=== PATIENT | female | born 1970 | race Caucasian/White ===

== ENCOUNTER 2018-02-17 23:54 | Emergency (ER) | payer SELFPAY ==
[2018-02-18 00:03] VITALS: BP 128/59; BMI 26.4
[2018-02-18 00:57] LABS: BILIRUBIN,URINE NEGATIVE (NEGATIVE); BLOOD/HEMOGLOBIN,URINE 5+ (NEGATIVE); GLUCOSE, URINE NEGATIVE (NEGATIVE); KETONES,URINE 1+ (NEGATIVE); LEUKOCYTE ESTERASE ,URINE 3+ (NEGATIVE); NITRITES,URINE POSITIVE (NEGATIVE); PH,URINE 6.5 (5.0 - 8.0); PROTEIN,URINE 4+ (NEGATIVE); UROBILINOGEN,URINE NORMAL (NORMAL)
[2018-02-18 01:05] LABS: APPEARANCE,URINE CLOUDY (CLEAR); COLOR,URINE RED (YELLOW)
[2018-02-18 01:06] LABS: BACTERIA,URINE 2+ /HPF (NEGATIVE); RBC,URINE TNTC /HPF (NONE SEEN); SQUAMOUS EPITHELIAL CELL,UR RARE /HPF (NEGATIVE)
--- NOTE | 2018-02-18 01:31 | DR.GENAD ---
HPI - PCP Primary Care Physician: MAT VARGAS - Complaint/Symptoms Chief Complaint Doctors Comments: Patient states that she has blood in commode when she uses the bathroom.She denies using tampons or pads. She only sees blood when she urinates. Chief Complaint:: STARTED BLEEDING TONIGHT FROM VAGINA, PT STATES SHE HAS HAD A HYSTERECTOMY AND THIS HAS HAPPENED ONE TIME BEFORE. - Source History Provided: Patient - Mode of Arrival Mode of Arrival: Ambulatory - Timing Onset of Chief Complaint: 02/17/18 PMH - PMH Past Medical History: Yes Past Medical History Comment: ULCERS Past Surgical History: Yes Surgical History: Hysterectomy Past Surgical History Comment: TUBAL LIGATION. CARPAL TUNNEL - Family History History of Family Medical Conditions: Yes Family Medical History: Diabetes Mellitus, Cancer, Hypertension Family Medical History Comment: MOTHER-THYROID PROBLEMS - Social History Does patient currently use any type of tobacco product: No Have you used tobacco products in the last 12 months: No Type of Tobacco Use: None Does any household member use tobacco: No Alcohol Use: None Do you use any recreational Drugs:: No Lives With: Family Lives Where: Home - infectious screening In the last 2 months have you had wt loss of >10#?: NO Have you had fever, night sweats or hemotysis?: No Have you traveled outside the country in the last 6 months?: No Isolation: Standard ROS - Review of Systems Eyes: No Symptoms Reported ENTM: No Symptoms Reported Respiratoy: No Symptoms Reported Cardiovascular: No Symptoms Reported Gastrointestinal/Abdominal: No Symptoms Reported Genitourinary: No Symptoms Reported Neurological: No Symptoms Reported Musculoskeletal: No Symptoms Reported Integumentary: No Symptoms Reported Hematologic/Lymphatic: No Symptoms Reported Endocrine: No Symptoms Reported Psychiatric: No Symptoms Reported All Other Systems: Reviewed and Negative PE - Vital Signs Vitals: Temperature 98.8 F Pulse Rate 78 Respiratory Rate 18 Blood Pressure 128/59 O2 Sat by Pulse Oximetry 98 - General General Appearance: Alert, In No Apparent Distress - Head Head Exam: Normal Inspection, Atraumatic - Eyes Eye exam: Normal Appearance, PERRL, EOMI - ENT ENT Exam: Normal Exam External Ear Exam: Normal External Inspection TM/Canal Exam: Bilateral Normal Nose Exam: Normal Nose Exam, Sinus Tenderness Mouth Exam: Normal Inspection Throat Exam: Normal Inspection - Neck Neck Exam: Normal Inspection, Full ROM - Chest Chest Inspection: Normal Inspection - Respiratory Respiratory Exam: Normal Lung Sounds Bilat Respiratory Exam: Bilateral Clear to Auscultation - Cardiovascular Cardiovascular Exam: Regular Rate, Normal Rhythm - Abdominal Exam Abdominal Exam: Normal Inspection, Normal Bowel Sounds Abdominal Tenderness: Suprapubic - Extremities Extremities Exam: Normal Inspection, Full ROM - Back Back Exam: Normal Inspection, Full ROM - Neurologic Neurological Exam: Alert, Oriented X3, CN II-XII Intact - Psychiatric Psychiatric Exam: Normal Affect, Normal Mood - Skin Skin Exam: Warm, Dry, Intact - Other Exam Other Exam: Vaginal examination: No blood noted, yellowish discharge c/w yeast infection ROR - Labs Reviewed Laboratory: Specimen Type Clean catch urine 02/18/18 00:34 Urine Color Red (YELLOW) 02/18/18 00:34 Urine Appearance Cloudy (CLEAR) 02/18/18 00:34 Urine pH 6.5 (5.0 - 8.0) 02/18/18 00:34 Ur Specific [place] 1.015 (1.000-1.030) 02/18/18 00:34 Urine Protein 4+ (NEGATIVE) 02/18/18 00:34 Urine Glucose (UA) Negative (NEGATIVE) 02/18/18 00:34 Urine Ketones 1+ (NEGATIVE) 02/18/18 00:34 Urine Occult Blood 5+ (NEGATIVE) 02/18/18 00:34 Urine Nitrite Positive (NEGATIVE) 02/18/18 00:34 Urine Bilirubin Negative (NEGATIVE) 02/18/18 00:34 Urine Urobilinogen Normal (NORMAL) 02/18/18 00:34 Ur Leukocyte Esterase 3+ (NEGATIVE) 02/18/18 00:34 Urine RBC Tntc /HPF (NONE SEEN) 02/18/18 00:34 Urine WBC Tntc /HPF (NONE SEEN) 02/18/18 00:34 Ur Squamous Epith Cells Rare /HPF (NEGATIVE) 02/18/18 00:34 Urine Bacteria 2+ /HPF (NEGATIVE) 02/18/18 00:34 Ur Culture Indicated? Yes/culture set up 02/18/18 00:34 - Diagnosis Discharge Problem: Cystitis and urethritis due to chlamydia - Discharge Plan Condition: Stable - Follow ups/Referrals Follow ups/Referrals: DENAE VARGAS [Primary Care Provider] - 3 days - Instructions
== END 2018-02-18 02:07 | disposition home or self-care (01) ==
LOC: ER 23:54
DX: N30.90 Cystitis, unspecified without hematuria (principal); A56.01 Chlamydial cystitis and urethritis
CPT/HCPCS: 81001; 87086; 99284